=== PATIENT | male | born 1965 | race Caucasian/White ===

== ENCOUNTER → 2021-08-03 10:40 | Outpatient (CLI) | payer OTHER, SELFPAY ==
[2021-08-03 12:10] LABS: Absolute Lymphocyte Count 1.97 X10^3/uL (0.83-4.51); Absolute Neutrophil Count 2.4 X10^3/uL (2.0-7.7); Basophil# 0.03 X10^3/uL; Basophil% 0.6 % (0-1); Eosinophil# 0.11 X10^3/uL; Eosinophils% 2.2 % (0-5); Hematocrit 44.4 % (40-54); Hemoglobin 14.4 g/dL (13.0-16.5); Lymphocyte # 1.97 X10^3/ul (0.83-4.51); Lymphocyte % 39.1 % (19-41); Mean Corp Hgb Conc 32.4 g/dL (32-36); Mean Corpuscular Hgb 29.6 pg (27.0-32.0); Mean Corpuscular Volume 91.4 fL (80-94); Mean Platelet Vol. 9.2 fl (6.2-12.0); Monocyte# 0.52 X10^3/uL; Monocyte% 10.3 % (0-10); NRBC Flagged by Analyzer 0 % (0-5); Neutrophil % 47.6 % (47-70); Platelet Count 229 K/mm3 (150-450); RBC Distribution Width CV 12.8 % (11.6-14.6); RBC Distribution Width SD 42.4 fl (35.1-43.9); Red Blood Count 4.86 M/mm3 (4.6-6.2)
[2021-08-03 12:42] LABS: ALB/GLOB Ratio 0.9 RATIO (0.9-2.4); AST(SGOT) 20 U/L (15-37); Alanine Aminotransfer ALT/SGPT 32 U/L (16-61); Albumin, Serum 3.7 g/dL (3.2-5.0); Alkaline Phosphatase 116 U/L (45-117); Anion Gap 7 (5-15); BUN 17 mg/dL (7-18); Calcium,Total 8.7 mg/dL (8.5-10.1); Chloride 105 mmol/L (98-107); Cholesterol 236 mg/dL (200); Creatinine, Serum 1.06 mg/dL (0.70-1.30); EST Glomerular Filtration Rate 76 mL/min (>60); Est Glom Filt Rate - Afr Amer 92 mL/min (>60); Globulin 4.1 g/dL (2.2-4.2); Glucose 99 mg/dL (74-106); High Density Lipoprotein 58 mg/dL; Potassium 4.1 mmol/L (3.5-5.1); Protein, Total 7.8 g/dL (6.4-8.2); Sodium Level 139 mmol/L (136-145); Triglycerides 113 mg/dL; Very Low Density Lipoprotein 23 mg/dL (5-40)
== END ==
PROVIDERS: PCP Family Medicine; Referring Provider Family Medicine; Visit Provider Family Medicine
DX: Z00.00 Encounter for general adult medical examination without abnormal findings (principal); Z12.5 Encounter for screening for malignant neoplasm of prostate
CPT/HCPCS: 36415; 80053; 80061; 84153; 85025; G0103

== ENCOUNTER → 2022-08-11 | Outpatient (CLI) | payer OTHER, SELFPAY ==
[2022-08-11 18:02] LABS: Absolute Lymphocyte Count 1.79 X10^3/uL (0.83-4.51); Absolute Neutrophil Count 2.9 X10^3/uL (2.0-7.7); Basophil# 0.03 X10^3/uL; Basophil% 0.6 % (0-1); Eosinophil# 0.09 X10^3/uL; Eosinophils% 1.7 % (0-5); Hematocrit 45.2 % (40-54); Hemoglobin 15.1 g/dL (13.0-16.5); Lymphocyte # 1.79 X10^3/ul (0.83-4.51); Lymphocyte % 33.7 % (19-41); Mean Corp Hgb Conc 33.4 g/dL (32-36); Mean Corpuscular Hgb 30.4 pg (27.0-32.0); Mean Corpuscular Volume 90.9 fL (80-94); Mean Platelet Vol. 9.3 fl (6.2-12.0); Monocyte# 0.49 X10^3/uL; Monocyte% 9.2 % (0-10); NRBC Flagged by Analyzer 0 % (0-5); Neutrophil % 54.6 % (47-70); Platelet Count 206 K/mm3 (150-450); RBC Distribution Width CV 12.7 % (11.6-14.6); Red Blood Count 4.97 M/mm3 (4.6-6.2); White Blood Count 5.3 K/mm3 (4.4-11.0)
[2022-08-11 18:43] LABS: AST(SGOT) 18 U/L (15-37); Alanine Aminotransfer ALT/SGPT 30 U/L (16-61); Albumin, Serum 3.8 g/dL (3.2-5.0); Alkaline Phosphatase 123 U/L (45-117); Anion Gap 7 (5-15); BUN 14 mg/dL (7-18); BUN/Creat Ratio 12.6 RATIO (10-20); Calcium,Total 8.9 mg/dL (8.5-10.1); Chloride 106 mmol/L (98-107); Cholesterol 155 mg/dL (200); Creatinine, Serum 1.11 mg/dL (0.70-1.30); EST Glomerular Filtration Rate 72 mL/min (>60); Est Glom Filt Rate - Afr Amer 87 mL/min (>60); Globulin 3.9 g/dL (2.2-4.2); Glucose 85 mg/dL (74-106); High Density Lipoprotein 63 mg/dL; PSA,Total - Annual Screen 3.71 ng/mL (0.00-4.00); Protein, Total 7.7 g/dL (6.4-8.2); Sodium Level 140 mmol/L (136-145); Triglycerides 97 mg/dL; Very Low Density Lipoprotein 19 mg/dL (5-40)
== END | disposition home or self-care (01) ==
PROVIDERS: PCP Family Medicine; Referring Provider Family Medicine; Visit Provider Family Medicine
DX: Z00.00 Encounter for general adult medical examination without abnormal findings (principal); Z12.5 Encounter for screening for malignant neoplasm of prostate
CPT/HCPCS: 36415; 80053; 80061; 84153; 85025; G0103

== ENCOUNTER → 2023-09-29 | Outpatient (CLI) | payer OTHER, SELFPAY ==
[2023-09-29 12:38] LABS: Absolute Lymphocyte Count 1.65 X10^3/uL (0.83-4.51); Absolute Neutrophil Count 2.7 X10^3/uL (2.0-7.7); Basophil# 0.03 X10^3/uL; Basophil% 0.6 % (0-1); Eosinophil# 0.12 X10^3/uL; Eosinophils% 2.4 % (0-5); Hematocrit 44.1 % (40-54); Hemoglobin 14.4 g/dL (13.0-16.5); Lymphocyte # 1.65 X10^3/ul (0.83-4.51); Lymphocyte % 32.9 % (19-41); Mean Corp Hgb Conc 32.7 g/dL (32-36); Mean Corpuscular Hgb 29.5 pg (27.0-32.0); Mean Corpuscular Volume 90.4 fL (80-94); Mean Platelet Vol. 9.6 fl (6.2-12.0); Monocyte# 0.54 X10^3/uL; Monocyte% 10.8 % (0-10); NRBC Flagged by Analyzer 0 % (0-5); Neutrophil # 2.67 X10^3/uL (2.7-7.7); Neutrophil % 53.1 % (47-70); Platelet Count 201 K/mm3 (150-450); RBC Distribution Width CV 12.7 % (11.6-14.6); RBC Distribution Width SD 41.8 fl (35.1-43.9); Red Blood Count 4.88 M/mm3 (4.6-6.2)
[2023-09-29 13:14] LABS: AST(SGOT) 16 U/L (15-37); Alanine Aminotransfer ALT/SGPT 34 U/L (16-61); Albumin, Serum 3.6 g/dL (3.2-5.0); Alkaline Phosphatase 126 U/L (45-117); Anion Gap 7 (5-15); BUN 17 mg/dL (7-18); Calcium,Total 8.8 mg/dL (8.5-10.1); Chloride 106 mmol/L (98-107); Cholesterol 162 mg/dL (200); Creatinine, Serum 0.95 mg/dL (0.70-1.30); EST Glomerular Filtration Rate 86 mL/min (>60); Est Glom Filt Rate - Afr Amer 104 mL/min (>60); Globulin 3.7 g/dL (2.2-4.2); Glucose 104 mg/dL (74-106); High Density Lipoprotein 58 mg/dL; PSA,Total - Annual Screen 3.02 ng/mL (0.00-4.00); Protein, Total 7.3 g/dL (6.4-8.2); Sodium Level 138 mmol/L (136-145); Triglycerides 71 mg/dL; Very Low Density Lipoprotein 14 mg/dL (5-40)
== END | disposition home or self-care (01) ==
LOC: BFHLAB 11:08
PROVIDERS: PCP Family Medicine; Visit Provider Family Medicine
DX: Z00.00 Encounter for general adult medical examination without abnormal findings (principal); Z12.5 Encounter for screening for malignant neoplasm of prostate
CPT/HCPCS: 36415; 80053; 80061; 84153; 85025; G0103

== ENCOUNTER 2024-04-01 07:41 | Day surgery (SDC) | payer BC, SELFPAY ==
[2024-04-01 08:00] VITALS: BP 149/86; PULSE 67; RESP 16; TEMP 36.6; O2SAT 99; BMI 30.3
[2024-04-01] MEDS: Lactated Ringers 1,000 ML 15 ML IV (08:03)
--- NOTE | 2024-04-01 09:00 | PCM.HP.STD ---
[facility] - General General Date of Admission: 04/01/24 Date of Service: 04/24/24 Chief Complaint: Screening colonoscopy [facility] Narrative MG FLOREZ, is a 59 M who presents today for screening colonoscopy. He had a colonoscopy approximately 11 years ago and that was normal. He does not have any abdominal pain. Is not any cramping. He does not have any chest pain or shortness of breath. He does not take any medicines on a daily basis. [facility] Medical History Alcohol use DDD (degenerative disc disease), thoracic External hemorrhoids Family history of colon cancer in father Migraine headache Non-smoker Wears glasses Wears partial dentures Home Medications kqtroof-oohrzlnfzvfie-pbxioqhw 250 mg-250 mg-65 mg tablet (Excedrin Migraine) 1 tab PO Q4-6H PRN MIGRAINE 03/26/24 [History Last Taken 03/31/24] sildenafil 100 mg tablet 100 mg PO DAILY PRN sexual activity 03/26/24 [History Last Taken Unknown] Allergy/AdvReac Type Severity Reaction Status Date / Time No Known Allergies Allergy Verified 04/01/24 07:48 Family History (Updated 03/26/24 @ 14:41 by Consuelo Magallanes) Father Colon cancer Mother Lymphoma Surgical History Hx of colonoscopy Social History (Updated 03/26/24 @ 14:42 by Consuelo Magallanes) household members: spouse current occupational status: employed 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, 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 Smoking Status: Never smoker details: Occasional alcohol substance use type: does not use ROS Review of Systems ROS Unobtainable: other Constitutional Constitutional: Denies fatigue, fever(s), poor appetite, weight gain or weight loss ENT HEENT: Denies mouth lesions Cardiovascular Cardiovascular: Denies abdominal bloating, abdominal edema or abdominal pain Respiratory/Chest Respiratory/Chest: Denies change in mental status, change in phlegm color, chest congestion or chest tightness Gastrointestinal Gastrointestinal: Denies belching, bloating, change in bowel habits, change in stool character, chewing difficulty, coffee ground emesis, constipation, cramping, diarrhea, dyspepsia, dysphagia, early satiety, excessive flatus, fecal incontinence, heartburn, hematemesis, hematochezia, hemorrhoids, loose stools, melena, nausea, odynophagia, rectal bleeding, tenesmus, vomiting or weight changes Genitourinary Genitourinary: Denies abdominal discomfort, burning urination or itching Musculoskeletal Musculoskeletal: Reports as per HPI; Denies muscle weakness or myalgias Integumentary Integumentary: Denies jaundice Neurologic Neurologic: Denies lack of coordination or weakness Psychiatric Psychiatric: Denies confusion, depression, memory loss, mood swings, paranoia or suicidal ideation Endocrine Endocrinology: Denies systems reviewed and no addt'l complaints, except as documented Hematologic/Lymphatic Hematologic/Lymphatic: Denies anemia, easy bleeding, easy bruising or lymphadenopathy Allergic/Immunologic Allergic/Immunologic: Denies systems reviewed and no addt'l complaints, except as documented Vital Signs Vital Signs Vital Signs: 04/01/24 08:00 04/01/24 08:00 Temperature 97.8 F Temperature Source Temporal Pulse Rate 67 Respiratory Rate 16 Respiratory Pattern Normal Blood Pressure 149/86 H Blood Pressure Mean 107 Blood Pressure Source Monitor Blood Pressure Position Semi-Fowlers Blood Pressure Location Right Arm Pulse Ox 99 Oxygen Delivery Method Room Air Weight Weight: 211 lb 3.245 oz Body Mass Index (BMI) 30.3 Physical Exam Const alert General Appearance: cooperative Orientation / Consciousness: oriented to person HEENT hearing grossly normal bilaterally Head and Scalp: normal to inspection Face and Sinus: face symmetric Nose: external nose normal Mouth: oral and palatal mucosa normal Eyes conjunctivae normal General Eye: normal appearance of both eyes Neck full ROM General: normal visual inspection Lymph Lymphatic: no lymphadenopathy noted Chest inspection of chest normal and palpation of chest normal Chest: symmetrical chest wall rise Resp normal respiratory effort Effort and Inspection: able to speak in complete sentences Cardio regular rate GI non-distended Percussion: normal to percussion Rectal Exam: deferred Neuro Speech: speech normal Gait (Neuro): normal gait Assessment & Plan Assessment/Plan (1) Encounter for screening for malignant neoplasm of colon: PLAN: He was explained alternatives, risk, benefits including not withstanding bleeding, infection, sepsis, perforation, need for emergent surgery . He will have an ASA of 3.
[2024-04-01 09:26] VITALS: BP 112/77; BP 149/86; PULSE 77; RESP 18; TEMP 36.2; O2SAT 96
--- NOTE | 2024-04-01 09:28 | OP.CCLET_ITS ---
04/01/2024 Gregory Khalil [address] [place] [address] Re : Colonoscopy procedure for London Dotson Dear Dr. Khalil This procedure was performed on Monday, April 01, 2024. My impressions and recommendations are as follows: Impressions : - Hemorrhoids found on perianal exam. - Diverticulosis in the sigmoid colon and at the splenic flexure. - The examination was otherwise normal on direct and retroflexion views. - No specimens collected. Recommendations : - Discharge patient to home. - Resume previous diet. - Continue present medications. - Repeat colonoscopy in 10 years for screening purposes. My findings are described in the full procedure note, which is enclosed. If I can be of further assistance, please feel free to contact me at . Sincerely, Bradford Friend, 04/01/2024 9:27:47 AM This report has been signed electronically.
--- NOTE | 2024-04-01 09:28 | OP.COLON_ITS ---
Patient Name: London Dotson Procedure Date: 04/01/2024 9:02 AM Date of : 1965 Age: 59 Procedure: Colonoscopy Indications: Screening for colorectal malignant neoplasm Providers: Bradford Nickerson DO Referring MD: Gregory Khalil Medicines: Monitored Anesthesia Care Patient Profile: This is a 59 year old male. Refer to note in patient chart for documentation of history and physical. Last Colonoscopy: more than 10 years ago. Complications: No immediate complications. Procedure: Pre-Anesthesia Assessment: - Prior to the procedure, a History and Physical was performed, and patient medications and allergies were reviewed. The patient is competent. The risks and benefits of the procedure and the sedation options and risks were discussed with the patient. All questions were answered and informed consent was obtained. Patient identification and proposed procedure were verified by the physician in the pre-procedure area. Mental Status Examination: alert and oriented. Airway Examination: normal oropharyngeal airway and neck mobility. Respiratory Examination: clear to auscultation. CV Examination: normal. Prophylactic Antibiotics: The patient does not require prophylactic antibiotics. Prior Anticoagulants: The patient has taken no anticoagulant or antiplatelet agents. ASA Grade Assessment: II - A patient with mild systemic disease. After reviewing the risks and benefits, the patient was deemed in satisfactory condition to undergo the procedure. The anesthesia plan was to use monitored anesthesia care (MAC). Immediately prior to administration of medications, the patient was re-assessed for adequacy to receive sedatives. The heart rate, respiratory rate, oxygen saturations, blood pressure, adequacy of pulmonary ventilation, and response to care were monitored throughout the procedure. The physical status of the patient was re-assessed after the procedure. After I obtained informed consent, the scope was passed under direct vision. Throughout the procedure, the patient's blood pressure, pulse, and oxygen saturations were monitored continuously. The Colonoscope was introduced through the anus and advanced to the cecum, identified by appendiceal orifice and ileocecal valve. The colonoscopy was performed without difficulty. The patient tolerated the procedure well. The quality of the bowel preparation was good. Anatomical landmarks were photographed. Scope In: 9:11:50 AM Scope Withdrawal Time 0 hours 6 minutes 22 seconds Scope Out: 9:21:50 AM Total Procedure Duration Time 0 hours 10 minutes 0 seconds Findings: Hemorrhoids were found on perianal exam. A few small-mouthed diverticula were found in the sigmoid colon and splenic flexure. The exam was otherwise without abnormality on direct and retroflexion views. Impression: - Hemorrhoids found on perianal exam. - Diverticulosis in the sigmoid colon and at the splenic flexure. - The examination was otherwise normal on direct and retroflexion views. - No specimens collected. Recommendation: - Discharge patient to home. - Resume previous diet. - Continue present medications. - Repeat colonoscopy in 10 years for screening purposes. Procedure Code(s): --- Professional --- G0121, Colorectal cancer screening; colonoscopy on individual not meeting criteria for high risk CPT copyright 2021 [employer]. All rights reserved. The codes documented in this report are preliminary and upon automotive welder review may be revised to meet current compliance requirements. Bradford Nickerson DO 04/01/2024 9:27:47 AM This report has been signed electronically. Number of Addenda: 0 Note Initiated On: 04/01/2024 9:02 AM
[2024-04-01 09:30] VITALS: BP 103/75; BP 149/86; PULSE 70; RESP 14; O2SAT 99
[2024-04-01 09:35] VITALS: BP 100/75; BP 149/86; PULSE 69; RESP 14; O2SAT 99
[2024-04-01 09:42] VITALS: BP 112/85; BP 149/86; PULSE 73; RESP 18; TEMP 36.4; O2SAT 99
[2024-04-01 10:10] VITALS: BP 149/86
== END 2024-04-01 10:10 | disposition home or self-care (01) ==
LOC: EN 07:43 → AC 07:45
PROVIDERS: PCP Family Medicine; Referring Provider Family Medicine; Visit Provider Internal Medicine Gastroenterology
PROC: 0DJD8ZZ Inspection of Lower Intestinal Tract, Via Natural or Artificial Opening Endoscopic (ICD-10-PCS; CPT 45378; principal; 2024-04-01 08:40)
DX: Z12.11 Encounter for screening for malignant neoplasm of colon (principal); K57.30 Diverticulosis of large intestine without perforation or abscess without bleeding; K64.4 Residual hemorrhoidal skin tags; Z80.0 Family history of malignant neoplasm of digestive organs
CPT/HCPCS: 45378; J7120; J2405

== ENCOUNTER → 2024-06-18 | Outpatient (CLI) | payer BC, SELFPAY ==
[2024-06-18 15:19] LABS: Absolute Neutrophil Count 2.9 X10^3/uL (2.0-7.7); Basophil# 0.03 X10^3/uL; Basophil% 0.6 % (0-1); Eosinophil# 0.11 X10^3/uL; Hematocrit 42.8 % (40-54); Lymphocyte % 35.3 % (19-41); Mean Corp Hgb Conc 32.7 g/dL (32-36); Mean Corpuscular Hgb 29.2 pg (27.0-32.0); Mean Corpuscular Volume 89.4 fL (80-94); Mean Platelet Vol. 9.5 fl (6.2-12.0); Monocyte# 0.47 X10^3/uL; Monocyte% 8.7 % (0-10); NRBC Flagged by Analyzer 0 % (0-5); Neutrophil # 2.85 X10^3/uL (2.7-7.7); Platelet Count 208 K/mm3 (150-450); RBC Distribution Width CV 12.6 % (11.6-14.6); RBC Distribution Width SD 41.3 fl (35.1-43.9); Red Blood Count 4.79 M/mm3 (4.6-6.2); White Blood Count 5.4 K/mm3 (4.4-11.0)
[2024-06-18 15:37] LABS: ALB/GLOB Ratio 0.9 RATIO (0.9-2.4); AST(SGOT) 27 U/L (15-37); Alanine Aminotransfer ALT/SGPT 34 U/L (16-61); Albumin, Serum 3.5 g/dL (3.2-5.0); Alkaline Phosphatase 111 U/L (45-117); Anion Gap 6 (5-15); BUN 14 mg/dL (7-18); BUN/Creat Ratio 13.2 RATIO (10-20); Calcium,Total 8.9 mg/dL (8.5-10.1); Chloride 105 mmol/L (98-107); Cholesterol 220 mg/dL (200); Creatinine, Serum 1.06 mg/dL (0.70-1.30); EST Glomerular Filtration Rate 75 mL/min (>60); Est Glom Filt Rate - Afr Amer 91 mL/min (>60); Globulin 3.8 g/dL (2.2-4.2); Glucose 96 mg/dL (74-106); High Density Lipoprotein 49 mg/dL; PSA,Total - Annual Screen 2.48 ng/mL (0.00-4.00); Potassium 4.3 mmol/L (3.5-5.1); Protein, Total 7.3 g/dL (6.4-8.2); Sodium Level 138 mmol/L (136-145); Triglycerides 177 mg/dL; Very Low Density Lipoprotein 35 mg/dL (5-40)
== END | disposition home or self-care (01) ==
LOC: BFHLAB 13:46
PROVIDERS: PCP Family Medicine; Referring Provider Family Medicine; Visit Provider Family Medicine
DX: Z00.00 Encounter for general adult medical examination without abnormal findings (principal); Z12.5 Encounter for screening for malignant neoplasm of prostate
CPT/HCPCS: 36415; 80053; 80061; 84153; 85025; G0103

== ENCOUNTER → 2025-07-11 | Outpatient (CLI) | payer BC, SELFPAY ==
[2025-07-11 09:58] LABS: Hematocrit 40.5 % (40-54); Hemoglobin 13.7 g/dL (13.0-16.5); Immature Granulocytes Count 0.010 X10^3/uL (0.0-0.0); Mean Corp Hgb Conc 33.8 g/dL (32-36); Mean Corpuscular Volume 89.4 fL (80-94); Mean Platelet Vol. 9.1 fl (6.2-12.0); NRBC Flagged by Analyzer 0 % (0-5); Platelet Count 197 K/mm3 (150-450); RBC Distribution Width CV 13.2 % (11.6-14.6); RBC Distribution Width SD 43.0 fl (35.1-43.9); Red Blood Count 4.53 M/mm3 (4.6-6.2); White Blood Count 5.1 K/mm3 (4.4-11.0)
[2025-07-11 10:57] LABS: AST(SGOT) 21 U/L (<=37); Alanine Aminotransfer ALT/SGPT 18 U/L (<=46); Albumin, Serum 4.1 g/dL (3.4-4.8); Alkaline Phosphatase 110 U/L (40-129); Anion Gap 10 (5-15); BUN 15 mg/dL (4-19); BUN/Creat Ratio 14.8 RATIO (10-20); Calcium,Total 9.1 mg/dL (7.6-11.0); Carbon Dioxide 24.9 mmol/L (21.0-32.0); Chloride 106 mmol/L (98-108); Cholesterol 209 mg/dL (<=200); Globulin 3.0 g/dL (2.2-4.2); Glucose 107 mg/dL (70-99); Low Density Lipoprotein Calc. 133 mg/dL; PSA,Total - Annual Screen 2.30 ng/mL (0.02-4.00); Potassium 4.6 mmol/L (3.3-5.1); Triglycerides 92 mg/dL; Very Low Density Lipoprotein 18 mg/dL (5-40); cholesterol:hdl ratio screen 3.63
== END | disposition home or self-care (01) ==
PROVIDERS: PCP Family Medicine; Referring Provider Family Medicine; Visit Provider Family Medicine
DX: Z00.00 Encounter for general adult medical examination without abnormal findings (principal); Z12.5 Encounter for screening for malignant neoplasm of prostate
CPT/HCPCS: 36415; 80053; 80061; 84153; 85025; G0103

== ENCOUNTER 2025-09-26 12:32 | Day surgery (SDC) | payer BC, SELFPAY ==
[2025-09-26] VITALS (10 sets, daily range): BP systolic 124–144; BP diastolic 76–85; PULSE 56–64; RESP 16–18; TEMP 36.2–36.6; O2SAT 94–100; BMI 27.8
[2025-09-26] MEDS: Lactated Ringers 1,000 ML 15 ML IV (12:59)
--- NOTE | 2025-09-26 13:19 | HP.PCM_ITS ---
HPI - General General Date of Admission: 09/26/25 Date of Service: 09/26/25 Chief Complaint: Symptomatic hemorrhoids HPI Narrative The patient is a 60-year-old male who is being seen today for symptomatic hemorrhoids. He states that he has been having issues with his hemorrhoids for at least 10 years. He has noticing swelling pain and his biggest complaint seems to be keeping the area clean after bowel movements due to excess tissue. He had a colonoscopy within the past year. This showed grade 2-3 hemorrhoids. Patient presents today for hemorrhoid surgery [facility] Medical History (Updated 09/19/25 @ 15:15 by Elissa Eid) Wears glasses Wears partial dentures Alcohol use Migraine headache Non-smoker External hemorrhoids DDD (degenerative disc disease), thoracic Home Medications Medication Instructions Recorded Last Taken Type ohlrica-myksuflrjnwua-rcacmgnp 250 1 tab PO Q4-6H PRN MIGRAINE 03/26/24 03/31/24 History mg-250 mg-65 mg tablet (Excedrin Migraine) Allergy/AdvReac Type Severity Reaction Status Date / Time No Known Allergies Allergy Verified 09/26/25 12:55 Family History Father Colon cancer HLD (hyperlipidemia) Mother Lymphoma Surgical History (Updated 09/19/25 @ 15:15 by Elissa Eid) History of surgical removal of skin lesion Hx of colonoscopy Social History household members: spouse current occupational status: employed 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, 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 Smoking Status: Never smoker details: Occasional alcohol substance use type: does not use Vital Signs Vital Signs Vital Signs: 09/26/25 12:56 09/26/25 12:56 Temperature 97.5 F L Temperature Source Temporal Pulse Rate 58 L Respiratory Rate 16 Respiratory Pattern Normal Blood Pressure 144/81 H Blood Pressure Mean 102 Blood Pressure Source Monitor Blood Pressure Position Semi-Fowlers Blood Pressure Location Right Arm Pulse Ox 100 Oxygen Delivery Method Room Air Weight Weight: 194 lb 0.108 oz Body Mass Index (BMI) 27.8 Assessment & Plan Assessment/Plan (1) Bleeding hemorrhoids: PLAN: Plan Doppler guided hemorrhoid artery ligation as well as excision of external hem orrhoids planned for today. Details of the planned procedure were discussed along with risks benefits and alternatives. He wishes to proceed Charges/Coding Visit Charges Inpatient E&M: 06587 Init Hosp L3
--- NOTE | 2025-09-26 13:41 | PRE.ANES_ITS ---
ASA Classification* ASA Classification ASA Classification: 2 Assessment & Plan Anesthesia* Anesthesia Assessment Anesthesia Assessment: Discussed sedation and/or anesthesia options, risks, benefits, and alternatives with patient/parents/legal guardian/POA. Questions invited. The patient/parents/legal guardian/POA seems to understand and agrees to proceed with anesthesia plan. Reviewed the physical assessment, medical history, allergy history and patient home medications list prior to surgery/procedure/anesthetic and documented any changes. Performed airway and anesthesia risk assessments. Anesthesia Type Anesthesia Type: General History Source History Obtained from:: Patient and Chart Anesthesia Focused Assessment* Temperature: 97.5 F Pulse Rate: 58 Blood Pressure: 144/81 Respiratory Rate: 16 Pulse Ox: 100 Oxygen Delivery Method: Room Air Airway Assessment Mouth opens: >3 cm Mallampati Score: II Teeth Condition: Intact, Partial and Upper Labs Anesthesia Preop lab: CBC WBC, (4.4-11.0) 5.1 K/mm3 07/11/25, 09:05 RBC, (4.6-6.2) 4.53 M/mm3 L 07/11/25, 09:05 Hgb, (13.0-16.5) 13.7 g/dL 07/11/25, 09:05 Hct, (40-54) 40.5 % 07/11/25, 09:05 Plt Count, (150-450) 197 K/mm3 07/11/25, 09:05 CHEMISTRY Potassium, (3.3-5.1) 4.6 mmol/L 07/11/25, 09:05 Sodium, (133-145) 140 mmol/L 07/11/25, 09:05 BUN, (4-19) 15 mg/dL 07/11/25, 09:05 Creatinine, (0.70-1.20) 1.00 mg/dL 07/11/25, 09:05 Glucose, (70-99) 107 mg/dL H 07/11/25, 09:05 COAG Pre-Assessment Diagnosis/Proposed Procedure Planned Operative Procedure(s): EXCISION EXTERNAL HEMORRHOIDECTOMY AND INTERNAL Anesthesia History Anesthesia History - director medical affairs: Anesthesia History - director medical affairs Hx Hospitalization No 09/19/25 15:10 Any Problems With Anesthesia No 09/19/25 15:10 Cholinesterase deficiency No 10/31/25 15:10 You/Your Family Experience No 09/19/25 15:10 fever (hyperthermia) with Relationship Recent Exposure to Contagious No 04/01/24 08:00 Disease Does patient have nerve No 09/19/25 15:10 stimulator Patient instructed to have device shut off --Does patient have Pacemaker No 09/26/25 12:56 or ICD? When Was Last Pacemaker Check QUESTION #4 FULL TEXT: You/Your Family Experience fever (hyperthermia) with Anesthesia Any additional information?: No Last Oral Intake Last Oral intake: Last Oral Intake NPO since 08:00 09/26/25 12:56 Meds taken in AM with sips of water? Meds patient instructed to take am of surgery Any additional information?: No PONV PONV - director medical affairs: PONV - director medical affairs Female No 09/19/25 15:10 HX of Motion Sickness Yes 09/19/25 15:10 HX of N/V After Surgery No 09/19/25 15:10 Non-Smoker Yes 09/19/25 15:10 Duration of Surgery greater Yes 09/19/25 15:10 than 60 minutes Number of Risk Factors 3 09/19/25 15:10 PONV Score Moderate Risk 09/19/25 15:10 Any additional information?: No Height & Weight Height & Weight: Anesthesia: Height & Weight Height 5 ft 10 in 09/26/25 12:56 Weight: 88 kg 09/26/25 12:56 Body Mass Index (BMI) 27.8 09/26/25 12:56 Respiratory Assessment Respiratory Assessment - director medical affairs: Respiratory Tract Infection Hx - director medical affairs Hx Respiratory Tract Infection No 09/19/25 15:10 Any additional information?: No STOP Sleep Apnea STOP Sleep Apnea - director medical affairs: STOP Sleep Apnea - director medical affairs Hx Hypertension No 09/19/25 15:10 Hx Sleep Apnea No 09/19/25 15:10 CPAP BIPAP Do you snore loudly (louder Yes 09/19/25 15:10 than talking or can be heard Do you often feel tired/ No 09/19/25 15:10 fatigued/ sleepy during daytime? Has anyone observed you stop No 09/19/25 15:10 breathing during sleep? STOP Results Negative 09/19/25 15:10 QUESTION #5 FULL TEXT : Do you snore loudly (louder than talking or can be heard through closed doors)? Any additional information?: No Tobacco Use History Tobacco Use History - director medical affairs: Tobacco Use History - director medical affairs Tobacco Use Smoking Status Never smoker 09/19/25 15:10 Hx Tobacco Use No 09/19/25 15:10 Years Smoking Packs Smoked per Day Smoking Cessation Date was within the last 15 years Hx Smoking Cessation Date Hx Smoking Cessation Counseling Any additional information?: No Hematologic Medial History Hematologic Hx - director medical affairs: Hematologic Medical Hx - emergency dispatcher Hx of Blood Transfusion No 09/19/25 15:10 Hx of Transfusion in last 3 No 09/19/25 15:10 Months Date of Last Transfusion (if within last 3 months) Ever experience any problems No 09/19/25 15:10 with transfusion(s)? Specify any problems Hx of Preganancy in last 3 N/A 09/19/25 15:10 Months Nurse Filling Out Transfusion DSCHRIBER 09/19/25 15:10 & Questions: Date: 09/19/25 09/19/25 15:10 Time: 15:11 09/19/25 15:10 Patient unable to answer at this time (ie. confused, unrespo Any additional information?: No /Reproduction History /Reproductive History - director medical affairs: /Reproductive Hx- director medical affairs Hx Now No 09/19/25 15:10 Gestational Age (in weeks): EDC: Hx Hx Para Hx Section SAB No 09/19/25 15:10 Does the father of the baby or his family experience fever w Father of the baby Malignant Hypertension history comment Any additional information?: No Active Medications Active Medications: Current Medications Generic Name Dose Route Start Last Admin Trade Name Freq PRN Reason Stop Dose Admin Cefazolin Sodium 2 gm/ Sodium 110 mls @ 200 mls/hr 09/26/25 14:15 Chloride IV 09/26/25 14:47 INTRAOP ONE Lactated Ringer's 1,000 mls @ 15 mls/hr 09/26/25 13:00 09/26/25 12:59 IV 15 mls/hr .Q48H YASEMEN Administration PFSH Medical History Wears glasses Wears partial dentures Alcohol use Migraine headache Non-smoker External hemorrhoids DDD (degenerative disc disease), thoracic Home Medications Medication Instructions Recorded Last Taken Type slpznml-kayhoikvoptmx-cvwbstrb 250 1 tab PO Q4-6H PRN MIGRAINE 03/26/24 03/31/24 History mg-250 mg-65 mg tablet (Excedrin Migraine) Allergy/AdvReac Type Severity Reaction Status Date / Time No Known Allergies Allergy Verified 09/26/25 12:55 Family History Father Colon cancer HLD (hyperlipidemia) Mother Lymphoma Surgical History History of surgical removal of skin lesion Hx of colonoscopy Social History household members: spouse current occupational status: employed 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
[2025-09-26] MEDS: Lactated Ringers 1,000 ML 1000 ML IV (14:03)
[2025-09-26] MEDS: Midazolam 2 MG/2 ML Syringe IV (14:03)
[2025-09-26] MEDS: Cefazolin 1 GM/5 ML Vial 2 GM IV (14:03)
--- NOTE | 2025-09-26 14:15 | HEM_PTH ---
PATIENT: MG FLOREZ Jr. LOC: [facility] [place] U#:[id number] AGE/SX: 60/M ROOM: RE09/26/[address]: Dr. Enrrique Ritter MD : 1965 BED: DIS: 09/26/2025 SPEC #: [id number] RECD: 09/29/25 07:13 STATUS: PHONG REQ #: [id number] EFREN: 09/26/25 14:[address]: Enrrique Ritter DEPT: SURGICAL PATHOLOGY RECD BY: Yuval Gilbert ENTERED: 09/29/25 10:17 SP TYPE: HEMORRHOID OTHR DR: Dr. Gregory Khalil, DO Tissues: A - HEMORRHOIDS Procedures: Surgery Specimen Level III HEADER OPERATION: Excision external hemorrhoids, THD hemorrhoidectomy PRE-OP DIAGNOSIS: Bleeding hemorrhoids TISSUE SUBMITTED: A- External hemorrhoids x2 MICROSCOPIC DIAGNOSIS A. Soft tissue designated "external hemorrhoids", hemorrhoidectomy: - Squamous mucosa with reactive epithelial changes, and dilated and congested submucosal vessels consistent with hemorrhoid. MICROSCOPIC DESCRIPTION Slides are reviewed. GROSS DESCRIPTION A. Received in formalin labeled with the patient's name and date of . Designated as "external hemorrhoids" are 4 guerrero-ivy to purple-blue, irregular, wrinkled portions of skin, 0.8 x 0.6 x 0.4 cm to 4.0 x 2.3 x 1.6 cm. Sectioning reveals rubbery, hemorrhagic and focally edematous cut surfaces. Audit Clerk sections are submitted in 1 cassette. [place] 09/29/2025 CPT:80624
[2025-09-26] MEDS: Bupiv/Epi 0.25% 30 ML Vial INFILT (15:00)
[2025-09-26] MEDS: fentaNYL 100 MCG/2 ML Ampul 200 MCG IV (15:17)
--- NOTE | 2025-09-26 15:50 | PCM.POST.ANE ---
Anesthesia: Postop Eval I Current Vital Signs Temperature: 97.9 F Pulse Rate: 64 Blood Pressure: 138/85 Respiratory Rate: 18 Pulse Ox: 100 Assessment Airway patent: Yes Spontaneous unlabored respirations: Yes nausea: No Vomiting: No Anesthesia Complication: No Fluid Hydration Crystalloid volume administer (ml): 1,000 Total IV fluid infused: 1,000 Progress Note Anesthesia document: Postop Eval 1 completed: Yes
--- NOTE | 2025-09-26 16:01 | EX.PCM.DISCH ---
Discharge Instructions Diet Discharge Diet: Light diet - advance as tolerated Activity Discharge Activity: Return to Normal Activity May shower in (days): 1 Lifting Restrictions: Keep lifting under 50 pounds for 3 to 4 weeks Additional Activity Instructions:: Avoid constipation Dressing / Incision Call your doctor if your incision/area has: Continuous Slow Oozing, Sudden Increased Bleeding, Increased Pain/ Swelling, Increased Redness and Foul Smelling Discharge Call your doctor if you observe: Fever of 101 or Higher Cleanse incision/area with: Soap & Water and - (Recommend tub soaks daily) Additional Dressing/Incision Instructions:: Apply Dibucaine topical anesthetic ointment 3 times daily as needed for pain relief. Follow Up Care Please Follow Up With: Enrrique Ritter MD When: 1 to 2 weeks. Please call office to schedule appointment Test Results: Test results from this visit will be discussed in further detail at your follow-up appointment, if applicable. Discharge Plan Admission Primary Reason for Your Visit: Hemorrhoid surgery Attending Provider: Enrrique Ritter Primary Care Provider: Gregory Khalil Instructions Print Language: Faroese Discharge Orders/Prescriptions Prescriptions: New oxycodone 5 mg tablet 5 mg PO Q8H PRN (Reason: pain) 4 Days Qty: 15 0RF Continued pvyroxj-ahqvzemhcback-wjjcfzbl [Excedrin Migraine] 250-250-65 mg tablet 1 tab PO Q4-6H PRN (Reason: MIGRAINE) Referrals / Follow Up: Gregory Khalil DO [Primary Care Provider, Family Practice] Disposition Disposition (needs filled in before D/C Order can be placed): Home, Self Care
--- NOTE | 2025-09-26 16:11 | PCM.OPRPT ---
[facility] CPT Codes: 52455 Remove in/ex hem groups 2+ and 56582 Excision, Anus w/US guidance Operative Report (Standard) Operative Information Date of Procedure: 09/26/25 Pre-Operative Diagnosis: Symptomatic internal and external hemorrhoids Post-Operative Diagnosis: Same Surgery/Procedure Performed: 1. Doppler guided hemorrhoid artery ligation 2. Excision of external hemorrhoids boiler room helper: Yes Assistant Professor Of Religion: Adolfo Mata Tasks completed by nurse first assist: Retracting and Other Additional transition assistant?: No Type of Anesthesia: General and Local RN Documented Start/Stop Times: Operation Date: 09/26/25 14:15 Case Time Into Pre-Op 09/26/25 12:46 Out of Pre-Op 09/26/25 14:02 Anesthesia Start 09/26/25 14:03 Into Room 09/26/25 14:03 Procedure Start 09/26/25 14:50 Procedure End 09/26/25 15:37 Anesthesia End 09/26/25 15:47 Out of Room 09/26/25 15:47 Into Recovery 09/26/25 15:48 Procedure Start Time: 14:50 Procedure Stop Time: 15:37 Select all DRAINS/GRAFTS/IMPLANTS that apply: None Estimated Blood Loss: 10 mL Specimen collected: Yes Description of specimen(s) removed: External hemorrhoids Description of surgery: The patient is a 60-year-old male recently seen through the office with bleeding internal and external hemorrhoids. He had been having longstanding issues with his hemorrhoids which were not improving with conservative measures. I offered him surgical intervention for his hemorrhoids. He had pretty significant internal as well as external hemorrhoids. I recommended a Doppler guided hemorrhoid artery ligation surgery for the internal hemorrhoids and recommended excision of his external hemorrhoids. We discussed the details of the planned procedure including the risks benefits and alternatives. He wished to proceed. The patient was brought to the operating room today following informed consent. Preoperative antibiotics were given and a timeout was performed. He was placed in a modified lithotomy position after anesthesia was induced. The perianal area was prepped and draped in the usual sterile manner. The Doppler probe was inserted first at the 12 o'clock position and this was rotated in a clockwise direction such that it each point in which a dopplerable signal was encountered, a 2-0 Vicryl suture was placed in a [id number] manner. This was repeated around the entire circumference of the rectum. I believe 8 total sutures were placed in this manner. This effectively tied off the inflow of blood to the internal hemorrhoids. This was performed successfully. Next local anesthetic was infiltrated into the external hemorrhoids. These were then excised using hand-held harmonic scalpel device. Once the external hemorrhoids were removed, they were sent to pathology. The resulting wounds were closed using 2-0 chromic suture in a running manner. A Gelfoam plug coated with Dibucaine was then inserted. The patient was awakened anesthesia and taken to recovery in good condition. Surgical Findings: Internal/external hemorrhoids Complications Complications: No Admit VTE Documentation VTE Present on Admission: No VTE Mechan Device Prophylaxis: SCD's VTE Pharm Prophylaxis ordered?: No Reason prophylaxis not ordered: Treatment Not Indicated
--- NOTE | 2025-09-26 17:58 | SUR.PHASEII ---
pt c/o mild nausea- scope patch ordered. pt is going to start getting dressed and see how he feels, at bedside
--- NOTE | 2025-09-27 12:15 | POSTOPAN2_ITS ---
Anesthesia Postop Eval I Sum Postop Eval Completion status Anesthesia document: Postop Eval 1 completed: Yes Anesthesia Postop Eval I Summary Anesthesia Postop Eval I Summary: Anesthesia Postop Eval I: Assessment Summary Airway patent Yes 09/26/25 15:50 [employer] ATTENDANT.CSIR Spontaneous unlabored Yes 09/26/25 15:50 [employer] ATTENDANT.CSIR respirations Mental status nausea No 09/26/25 15:50 [employer]AL [employer] ATTENDANT.CSIR Vomiting No 09/26/25 15:50 [employer]EN[employer]AL [employer]OR[employer] ATTENDANT.CSIR Anesthesia Postop Eval I: Fluid Summary Crystalloid volume administer 1,000 09/26/25 15:50 [employer]AL [employer]OR[employer] ATTENDANT.CSIR (ml) Colloids volume administered ( ml) Blood Product volume administered (ml) Total IV fluid infused 1,000 09/26/25 15:50 [employer]AL [employer] ATTENDANT.CSIR Anesthesia Postop Eval I: Summary Notes Anesthesia Complication No 09/26/25 15:50 [employer]AL [employer]OR[employer] ATTENDANT.CSIR Anesthesia Complication Comment: Post-operative progress note Anesthesia: Postop Eval II Evaluation Mental status: Awake and Calm Pain Level: 1 nausea: No Vomiting: No Complications Anesthesia Complication: No
--- NOTE | 2025-09-27 12:15 | PCM.POSTANE2 ---
Anesthesia Postop Eval I Sum Postop Eval Completion status Anesthesia document: Postop Eval 1 completed: Yes Anesthesia Postop Eval I Summary Anesthesia Postop Eval I Summary: Anesthesia Postop Eval I: Assessment Summary Airway patent Yes 09/26/25 15:50 [employer] SAL[employer] REPRESENTATIVE.CSIR Spontaneous unlabored Yes 09/26/25 15:50 [employer] SAL[employer] REPRESENTATIVE.CSIR respirations Mental status nausea No 09/26/25 15:50 [employer] SAL[employer] REPRESENTATIVE.CSIR Vomiting No 09/26/25 15:50 [employer] SAL[employer] REPRESENTATIVE.CSIR Anesthesia Postop Eval I: Fluid Summary Crystalloid volume administer 1,000 09/26/25 15:50 [employer] SAL[employer] REPRESENTATIVE.CSIR (ml) Colloids volume administered ( ml) Blood Product volume administered (ml) Total IV fluid infused 1,000 09/26/25 15:50 [employer] SAL[employer] REPRESENTATIVE.CSIR Anesthesia Postop Eval I: Summary Notes Anesthesia Complication No 09/26/25 15:50 [employer] SAL[employer] REPRESENTATIVE.CSIR Anesthesia Complication Comment: Post-operative progress note Anesthesia: Postop Eval II Evaluation Mental status: Awake and Calm Pain Level: 1 nausea: No Vomiting: No Complications Anesthesia Complication: No
== END 2025-09-26 18:38 | disposition home or self-care (01) ==
LOC: SDC 12:35 → AC 12:36
PROVIDERS: PCP Family Medicine; Visit Provider Surgery
DX: K64.4 Residual hemorrhoidal skin tags (principal); K64.8 Other hemorrhoids
CPT/HCPCS: 46260; 00902; 88304; J2405